=== PATIENT | male | born 1980 | race Caucasian/White ===

== ENCOUNTER 2021-02-23 11:35 | Emergency (ER) | payer SELFPAY ==
[~2021-02-23] VITALS: Ht 180.3 cm; Wt 68.2 kg
[2021-02-23] MEDS ORDERED: CEPHALEXIN500 M1 PO (12:31)
[2021-02-23 12:38] VITALS: BP 145/71; PULSE 98; TEMP 100.3
== END 2021-02-23 12:38 | disposition home or self-care (01) ==
LOC: COL.ER 11:35
DX: J02.9 Acute pharyngitis, unspecified (principal)